=== PATIENT | female | born 1990 | race Caucasian/White ===

== ENCOUNTER 2017-05-24 17:22 | Emergency (ER) | payer BC, OTHER ==
[~2017-05-24] VITALS: Ht 157.5 cm; Wt 78.6 kg
[~2017-05-24 17:22] MED LIST: ASPI325T45 PO; ATV5X PO; CALCTAB7 PO; CHOL20009 PO; CHOLCAP2 PO; ONDA4TAB9 PO; OXYC-57 PO; TNR25 PO
[2017-05-24 17:24] VITALS: TEMP 36.8; Ht 157.5 cm; Wt 78.6 kg
--- NOTE | 2017-05-24 18:41 | DIAGNOSTIC IMAGING REPORT ---
CHEST ONE VIEW PORTABLE CLINICAL HISTORY: Palpitations, Chest Pain COMPARISON STUDY: Chest radiograph June 19, 2014. FINDINGS: Lung volumes are normal. There is no pneumothorax or pleural effusion. There is no consolidation to suggest pneumonia. Pulmonary vascularity is normal. Cardiomediastinal silhouette is normal. IMPRESSION: No acute cardiopulmonary findings. Electronically signed by: Kevyn Minor M.D. 05/24/2017 6:40 PM Dictated Date/Time: 05/24/2017 6:40 PM
[2017-05-24 19:07] LABS: BASO % 0.3 %; BASO ABS # 0.04 K/uL (0-0.2); COMPLETE YES; EOS % 0.6 %; HEMATOCRIT 39.3 % (37-47); IG% 0.2 %; LYMPH % 27.3 %; LYMPH ABS # 3.82 K/uL (1.2-3.4); MEAN CELL VOLUME 88.1 fL (80-100); MEAN CORPUSCULAR HEMOGLOBIN 29.4 pg (25-34); MEAN CORPUSCULAR HGB CONC 33.3 g/dl (32-36); MEAN PLATELET VOLUME 10.6 fL (7.4-10.4); MONO % 7.2 %; NEUT % 64.4 %; PLATELET COUNT 278 K/uL (130-400); RED BLOOD COUNT 4.46 M/uL (4.2-5.4); WHITE BLOOD COUNT 13.99 K/uL (4.8-10.8)
[2017-05-24 19:24] LABS: BLOOD UREA NITROGEN 5 mg/dl (7-18); BUN/CREATININE RATIO 7.7 (10-20); CALCIUM 9.2 mg/dl (8.5-10.1); CARBON DIOXIDE 27 mmol/L (21-32); CHLORIDE 105 mmol/L (98-107); GLUCOSE 78 mg/dl (70-99); POTASSIUM 3.4 mmol/L (3.5-5.1); SODIUM 140 mmol/L (136-145)
[2017-05-24 19:35] LABS: THYROID STIMULATING HORMONE 0.998 uIu/ml (0.300-4.500)
[2017-05-24] MEDS ORDERED: KETOROLAC TROMETHAMINE 30 MG/ML VIAL IV STA (20:00)
--- NOTE | 2017-05-24 21:40 | EMERGENCY ROOM VISIT NOTE ---
History First contact with patient: 18:15 Chief Complaint: CARDIAC ASSESSMENT Stated Complaint: CHEST PAIN, DIZZINESS Nursing Triage Summary: pt c/o chest pain started to worsen 2 weeks ago pt reports having chronic palpatations. has head pressure when standing, described as sharp and achey History of Present Illness The patient is a 26 year old female who presents to the Emergency Room with complaints of palpitations. The patient states that she has had this feeling that her heart is skipping beats and beating out of her chest over the last 2 weeks, but has acutely worsened over the last week. She states that these usually are intermittent but have been consistently occurring throughout the day. She is currently on Atenolol for a rapid heart rate, and follows with [facility] cardiology. She has also had intermittent chest pain over the last 2 weeks as well that changes in position over her chest. She states that she has also been lightheaded and dizzy during these episodes and is having difficulty standing and needs to lie down. She states like she feels she has a lot of pressure in her head and it feels like it is going to explode. She denies any fainting or loss of consciousness. When she lays down she is no longer lightheaded but still has the palpitations. She denies any abdominal pain,and fever chills lightheadedness nausea or vomiting. She has not taken any Ativan because she does not want to treat her symptoms with that. Review of Systems See HPI for pertinent positives and negatives. A total of ten systems were reviewed and were otherwise negative. Past Medical/Surgical History Medical Problems: (1) Anxiety (2) HTN (hypertension) (3) Hypokalemia (4) left foot surgery (5) Tibial plateau fracture, left (6) Vitamin D deficiency Family History Diabetes mellitus Gallbladder disease Hypertension Social History Smoking Status: Current Every Day Smoker Alcohol Use: occasionally Drug Use: none Marital Status: single Housing Status: other Occupation Status: employed Current/Historical Medications Scheduled Atenolol (Atenolol), 25 MG PO QAM Allergies Coded Allergies: Tramadol (Verified Adverse Reaction, Intermediate, N/V, 08/28/16) Physical Exam Vital Signs Date Time Temp Pulse Resp B/P (MAP) Pulse Ox O2 Delivery O2 Flow Rate FiO2 05/24/17 21:44 61 20 127/76 95 Room Air 05/24/17 20:30 72 20 124/87 98 Room Air 05/24/17 19:47 66 20 117/83 99 Room Air 05/24/17 19:07 69 05/24/17 19:03 68 20 134/91 99 Room Air 05/24/17 17:24 36.8 75 18 147/94 100 Room Air Physical Exam GENERAL: Awake, alert, well-appearing, in no distress HENT: Normocephalic, atraumatic. EYES: Normal conjunctiva. Sclera non-icteric. NECK: Supple. No nuchal rigidity. RESPIRATORY: Clear to auscultation. CARDIAC: Regular rate, normal rhythm. Extremities warm and well perfused. Pulses equal. ABDOMEN: Soft, non-distended. No tenderness to palpation. No rebound or guarding. No masses. RECTAL: Deferred. MUSCULOSKELETAL: Chest examination reveals no tenderness. LOWER EXTREMITIES: Calves are equal size bilaterally and non-tender. No edema. No discoloration. NEURO: Normal sensorium. No sensory or motor deficits noted. SKIN: No rash or jaundice noted. Medical Decision & Procedures Laboratory Results 05/24/17 18:55 Red Blood Count 4.46, Mean Corpuscular Volume 88.1, Mean Corpuscular Hemoglobin 29.4, Mean Corpuscular Hemoglobin Concent 33.3, Mean Platelet Volume 10.6, Neutrophils (%) (Auto) 64.4, Lymphocytes (%) (Auto) 27.3, Monocytes (%) (Auto) 7.2, Eosinophils (%) (Auto) 0.6, Basophils (%) (Auto) 0.3, Neutrophils # (Auto) 9.00, Lymphocytes # (Auto) 3.82, Monocytes # (Auto) 1.01, Eosinophils # (Auto) 0.09, Basophils # (Auto) 0.04 05/24/17 18:55 Test 05/24/17 18:40 05/24/17 18:55 05/24/17 19:01 05/24/17 21:15 Urine Test NEG (NEG) White Blood Count 13.99 K/uL (4.8-10.8) Red Blood Count 4.46 M/uL (4.2-5.4) Hemoglobin 13.1 g/dL (12.0-16.0) Hematocrit 39.3 % (37-47) Mean Corpuscular Volume 88.1 fL (80-100) Mean Corpuscular Hemoglobin 29.4 pg (25-34) Mean Corpuscular Hemoglobin Concent 33.3 g/dl (32-36) Platelet Count 278 K/uL (130-400) Mean Platelet Volume 10.6 fL (7.4-10.4) Neutrophils (%) (Auto) 64.4 % Lymphocytes (%) (Auto) 27.3 % Monocytes (%) (Auto) 7.2 % Eosinophils (%) (Auto) 0.6 % Basophils (%) (Auto) 0.3 % Neutrophils # (Auto) 9.00 K/uL (1.4-6.5) Lymphocytes # (Auto) 3.82 K/uL (1.2-3.4) Monocytes # (Auto) 1.01 K/uL (0.11-0.59) Eosinophils # (Auto) 0.09 K/uL (0-0.5) Basophils # (Auto) 0.04 K/uL (0-0.2) RDW Standard Deviation 44.1 fL (36.4-46.3) RDW Coefficient of Variation 13.6 % (11.5-14.5) Immature Granulocyte % (Auto) 0.2 % Immature Granulocyte # (Auto) 0.03 K/uL (0.00-0.02) Anion Gap 8.0 mmol/L (3-11) Est Creatinine Clear Calc Drug Dose 118.3 ml/min Estimated GFR () 138.6 Estimated GFR (Non- 119.6 BUN/Creatinine Ratio 7.7 (10-20) Calcium Level 9.2 mg/dl (8.5-10.1) Thyroid Stimulating Hormone (TSH) 0.998 uIu/ml (0.300-4.500) Bedside D-Dimer 123 ng/mlFEU (0-450) Medications Administered Medications (Trade) Dose Ordered Sig/Deedee Route Start Time Stop Time Status Last Admin Dose Admin Ketorolac Tromethamine (Toradol Inj) 30 mg NOW STAT IV 05/24/17 20:00 05/24/17 20:01 DC 05/24/17 20:33 30 MG Medical Decision Patient is a 26 year old female that presents with chest pain and palpitations Differential diagnosis includes anxiety, electrolyte abnormality, arrhythmia, cardiac ischemia, pulmonary embolism, pneumothorax, infection, musculoskeletal, and other etiologies were considered as well. Labs: CBC, CMP, Troponin, D-Dimer, TSH, Urine Imaging: Chest X-Ray, EKG Medications: Toradol 30mg IV Impression Primary Impression: Chest pain Patient is a 26 year old female that presents with chest pain and palpitations - EKG shows NSR with no ST changes - CBC, CMP, D-Dimer, Troponin, and TSH are within normal limits - Workup negative and no acute findings on imaging or laboratory work - Discussed with case management making an appointment with [facility] at first available appointment Departure Information Dispostion Home / Self-Care Condition GOOD Referrals No Doctor, Assigned (PCP) Patient Instructions My [facility] Additional Instructions Follow up with [facility] at the first available appointment for follow up of your current condition Ibuprofen(Motrin, Advil) may be used for fever or pain. Use 600mg every six hours as needed. Take with food. Avoid using more than 2400mg in a 24 hour period. Do not use 2400mg per day for more than three consecutive days without physician direction. Prolonged inappropriate use can lead to stomach upset or ulcers. (AND/OR) Acetaminophen(Tylenol) may be used for fever or pain. Use 1000mg every six hours as needed. Avoid using more than 4000mg in a 24 hour period. Rest and drink plenty of fluids as tolerated. Continue current medications. Avoid strenuous activities and anything that worsens your pain. Resume normal activities once your symptoms resolve. Return to the ER immediately for worsening or persistent chest pain, abdominal pain, vomiting, fevers, chest pains, difficulty breathing, worsening of your condition, or as needed. Problem Qualifiers Primary Impression: Chest pain Chest pain type: unspecified Qualified Codes: R07.9 - Chest pain, unspecified
[2017-05-24 21:44] VITALS: BP 127/76; PULSE 61; O2SAT 95
--- NOTE | 2017-05-24 23:15 | EMERGENCY ROOM VISIT NOTE ---
History Report prepared by Jase: Ade Larsen Under the Supervision of: Dr. Nahun Kraus D.O. First contact with patient: 18:16 Chief Complaint: CARDIAC ASSESSMENT Stated Complaint: CHEST PAIN, DIZZINESS Nursing Triage Summary: pt c/o chest pain started to worsen 2 weeks ago pt reports having chronic palpatations. has head pressure when standing, described as sharp and achey History of Present Illness The patient is a 26 year old female who presents to the Emergency Room with complaints of intermittent heart palpitations that began one month ago. She currently rates her discomfort as a 10/10 in severity. The patient states that she has been experiencing palpations intermittently for a month but states that they worsened over the last week. She states that they started this morning when she woke up and last approximately three minutes. The patient additionally notes chest pain for the last two weeks. She denies any modifying factors. The patient states that she has been experiencing head pressure and a headache when standing. Headaches come on gradually and gradually worsened. The patient states that she follows with cardiology. She reports a history of meningitis. The patient denies any history of blood clots or cancer. She additionally notes lightheadedness and dizziness. The patient reports a history of anxiety and notes that she is prescribed Ativan, but denies using it. Pt denies change in vision, fevers, shortness of breath, nausea, hematemesis, vomiting, diarrhea, swelling to her lower extremities, pain with urination, and melena. Source of History: patient Onset: one month ago Position: other (heart) Symptom Intensity: 10/10 Quality: other (palpitations) Timing: intermittent Associated Symptoms: + headache, + chest pain Note: Associated Symptoms: dizziness and lightheadedness Review of Systems See HPI for pertinent positives & negatives. A total of 10 systems reviewed and were otherwise negative. Past Medical & Surgical Medical Problems: (1) Anxiety (2) HTN (hypertension) (3) Hypokalemia (4) left foot surgery (5) Tibial plateau fracture, left (6) Vitamin D deficiency Family History Diabetes mellitus Gallbladder disease Hypertension Social History Smoking Status: Current Every Day Smoker Alcohol Use: occasionally Drug Use: none Marital Status: single Housing Status: other Occupation Status: employed Current/Historical Medications Scheduled Atenolol (Atenolol), 25 MG PO QAM Allergies Coded Allergies: Tramadol (Verified Adverse Reaction, Intermediate, N/V, 10/16/16) Physical Exam Vital Signs Date Time Temp Pulse Resp B/P (MAP) Pulse Ox O2 Delivery O2 Flow Rate FiO2 05/24/17 21:44 61 20 127/76 95 Room Air 05/24/17 20:30 72 20 124/87 98 Room Air 05/24/17 19:47 66 20 117/83 99 Room Air 05/24/17 19:07 69 05/24/17 19:03 68 20 134/91 99 Room Air 05/24/17 17:24 36.8 75 18 147/94 100 Room Air Physical Exam GENERAL: Sitting up in bed, alert, well appearing, well nourished, no distress, non-toxic EYE EXAM: normal conjunctiva, PERRL and EOM's grossly intact OROPHARYNX: no exudate, no erythema, lips, buccal mucosa, and tongue normal and mucous membranes are moist NECK: supple, no nuchal rigidity, no adenopathy, non-tender LUNGS: Clear to auscultation. Normal chest wall mechanics HEART: no murmurs, S1 normal and S2 normal ABDOMEN: abdomen soft, non-tender, normo-active bowel sounds, no masses, no rebound or guarding. BACK: Back is symmetrical on inspection and there is no deformity, no midline tenderness, no CVA tenderness. SKIN: no rashes and no bruising UPPER EXTREMITIES: upper extremities are grossly normal. LOWER EXTREMITIES: No pitting edema. NEURO EXAM: Normal sensorium, cranial nerves II-XII intact, normal speech, no weakness of arms, no weakness of legs. No drift. Finger to nose intact. Gross sensation intact. Medical Decision & Procedures ER Provider Diagnostic Interpretation: Radiology results as stated below per my review and the radiologist's interpretation: CHEST ONE VIEW PORTABLE CLINICAL HISTORY: Palpitations, Chest Pain COMPARISON STUDY: Chest radiograph June 19, 2014. FINDINGS: Lung volumes are normal. There is no pneumothorax or pleural effusion. There is no consolidation to suggest pneumonia. Pulmonary vascularity is normal. Cardiomediastinal silhouette is normal. IMPRESSION: No acute cardiopulmonary findings. Electronically signed by: Kevyn Minor M.D. 05/24/2017 6:40 PM Dictated Date/Time: 05/24/2017 6:40 PM Laboratory Results 05/24/17 18:55 Red Blood Count 4.46, Mean Corpuscular Volume 88.1, Mean Corpuscular Hemoglobin 29.4, Mean Corpuscular Hemoglobin Concent 33.3, Mean Platelet Volume 10.6, Neutrophils (%) (Auto) 64.4, Lymphocytes (%) (Auto) 27.3, Monocytes (%) (Auto) 7.2, Eosinophils (%) (Auto) 0.6, Basophils (%) (Auto) 0.3, Neutrophils # (Auto) 9.00, Lymphocytes # (Auto) 3.82, Monocytes # (Auto) 1.01, Eosinophils # (Auto) 0.09, Basophils # (Auto) 0.04 05/24/17 18:55 Test 05/24/17 18:40 05/24/17 18:55 05/24/17 19:01 05/24/17 21:15 Urine Test NEG (NEG) White Blood Count 13.99 K/uL (4.8-10.8) Red Blood Count 4.46 M/uL (4.2-5.4) Hemoglobin 13.1 g/dL (12.0-16.0) Hematocrit 39.3 % (37-47) Mean Corpuscular Volume 88.1 fL (80-100) Mean Corpuscular Hemoglobin 29.4 pg (25-34) Mean Corpuscular Hemoglobin Concent 33.3 g/dl (32-36) Platelet Count 278 K/uL (130-400) Mean Platelet Volume 10.6 fL (7.4-10.4) Neutrophils (%) (Auto) 64.4 % Lymphocytes (%) (Auto) 27.3 % Monocytes (%) (Auto) 7.2 % Eosinophils (%) (Auto) 0.6 % Basophils (%) (Auto) 0.3 % Neutrophils # (Auto) 9.00 K/uL (1.4-6.5) Lymphocytes # (Auto) 3.82 K/uL (1.2-3.4) Monocytes # (Auto) 1.01 K/uL (0.11-0.59) Eosinophils # (Auto) 0.09 K/uL (0-0.5) Basophils # (Auto) 0.04 K/uL (0-0.2) RDW Standard Deviation 44.1 fL (36.4-46.3) RDW Coefficient of Variation 13.6 % (11.5-14.5) Immature Granulocyte % (Auto) 0.2 % Immature Granulocyte # (Auto) 0.03 K/uL (0.00-0.02) Anion Gap 8.0 mmol/L (3-11) Est Creatinine Clear Calc Drug Dose 118.3 ml/min Estimated GFR () 138.6 Estimated GFR (Non- 119.6 BUN/Creatinine Ratio 7.7 (10-20) Calcium Level 9.2 mg/dl (8.5-10.1) Thyroid Stimulating Hormone (TSH) 0.998 uIu/ml (0.300-4.500) Bedside D-Dimer 123 ng/mlFEU (0-450) Troponin I < 0.015 ng/ml (0-0.045) Laboratory results per my review. Medications Administered Medications (Trade) Dose Ordered Sig/Deedee Route Start Time Stop Time Status Last Admin Dose Admin Ketorolac Tromethamine (Toradol Inj) 30 mg NOW STAT IV 05/24/17 20:00 05/24/17 20:01 DC 05/24/17 20:33 30 MG ECG Indication: chest pain Rate (beats per minute): 76 Rhythm: sinus rhythm Findings: no acute ischemic change, no ectopy, other (normal axis) ED Course ED COURSE: Vital signs were reviewed and showed normal vitals The patients medical record was reviewed The above diagnostic studies were performed and reviewed. ED treatments and interventions as stated above. 1815: The patient was evaluated in room B3A. A complete history and physical examination was performed by Dr. Tolentino, [employer]. 1929: The patient was evaluated in room B3A. A complete history and physical examination was performed. 1999: Ordered Toradol Inj 30 mg IV. 0: Upon reevaluation, the patient is she is feeling much better.I discussed my findings with the patient and she understands and agrees with the treatment plan. Based on the patients age, coexisting illnesses, exam and lab findings the decision to treat as an outpatient was made. The patient remained stable while under my care. The patient appeared well at the time of discharge. Medical Decision Differential diagnoses includes but is not limited to acute coronary syndrome, myocardial infarction, pericarditis, pulmonary embolus, aortic dissection, pneumonia, pneumothorax, musculoskeletal, shingles, esophageal, headache, tension headache, cluster headache, migraine, subarachnoid hemorrhage, meningitis, mass, central venous thrombus, concussion, trauma and epidural/ subdural hemorrhage. Medication Reconciliation: I attest that I have personally reviewed the patient' s current medication list. Blood pressure screening: Patient was found to have normal blood pressure on screening and does not require follow-up. Patient is a 26-year-old female who presents the ER for intermittent heart palpitations in the past 2-3 weeks. She's been worked up for cardiology for this in the past. Just complains of a chest pain with this as well. Symptoms have been present all day today. No weakness or numbness in arms or legs. According to the headache which is been coming and going over the past 2 weeks. She is completely neurologically intact. Labs show a leukocytosis of 13.9 thousand. BMP shows a slightly low potassium. Troponins were negative 2. TSH is normal. D-dimer was negative. Urine was negative. Chest x- ray and EKG were unremarkable. Patient was updated in regards to findings, she was given a dose of Toradol. She felt 100% better was discharged follow with her PCP. Discussed with Pt concerning signs and symptoms to watch out for. Pt was instructed to follow up with their PCP and discussed with the patient their option to return to the ED at anytime for persistent or worsening symptoms. The appropriate anticipatory guidance and out-patient management, including indications for return to the emergency department, were explained at length to the patient and understood. Impression Primary Impression: Precordial chest pain Additional Impression: Cephalalgia Scribe Attestation The scribe's documentation has been prepared under my direction and personally reviewed by me in its entirety. I confirm that the note above accurately reflects all work, treatment, procedures, and medical decision making performed by me. Departure Information Dispostion Home / Self-Care Referrals No Doctor, Assigned (PCP) Forms IMPORTANT VISIT INFORMATION Patient Instructions Chest Pain - [facility], [facility], [facility] Additional Instructions Follow up with [facility] at the first available appointment for follow up of your current condition Ibuprofen(Motrin, Advil) may be used for fever or pain. Use 400mg every six hours as needed. Take with food. Avoid using more than 1600mg in a 24 hour period. Do not use 1600mg per day for more than three consecutive days without physician direction. Prolonged inappropriate use can lead to stomach upset or ulcers. (AND/OR) Acetaminophen(Tylenol) may be used for fever or pain. Use 1000mg every six hours as needed. Avoid using more than 4000mg in a 24 hour period. Rest and drink plenty of fluids as tolerated. Continue current medications. Avoid strenuous activities and anything that worsens your pain. Resume normal activities once your symptoms resolve. Return to the ER immediately for worsening or persistent chest pain, abdominal pain, vomiting, fevers, chest pains, difficulty breathing, worsening of your condition, or as needed. Problem Qualifiers Additional Impression: Cephalalgia Headache type: unspecified Headache chronicity pattern: acute headache Intractability: not intractable Qualified Codes: R51 - Headache
== END 2017-05-24 22:14 | disposition home or self-care (01) ==
LOC: C.EDB 17:24
DX: R07.2 Precordial pain (principal); R51 Headache; F41.9 Anxiety disorder, unspecified; I10 Essential (primary) hypertension; E87.6 Hypokalemia; E55.9 Vitamin D deficiency, unspecified; Z86.61 Personal history of infections of the central nervous system; F17.210 Nicotine dependence, cigarettes, uncomplicated; Z83.3 Family history of diabetes mellitus; Z83.79 Family history of other diseases of the digestive system; Z82.49 Family history of ischemic heart disease and other diseases of the circulatory system; Z79.899 Other long term (current) drug therapy

== ENCOUNTER 2017-10-16 14:31 | Emergency (ER) | payer BC, OTHER ==
[~2017-10-16] VITALS: Ht 157.5 cm; Wt 74.8 kg
[~2017-10-16 14:31] MED LIST changes: -ASPI325T45 PO; -ATV5X PO; -CALCTAB7 PO; -CHOL20009 PO; -CHOLCAP2 PO; -ONDA4TAB9 PO; -OXYC-57 PO
[2017-10-16 14:41] VITALS: TEMP 36.8; Ht 157.5 cm; Wt 74.8 kg
[2017-10-16] MEDS ORDERED: DiphenhydrAMINE HCL 50 MG/ML VIAL IV STA (16:17)
[2017-10-16] MEDS ORDERED: SODIUM CHLORIDE 0.9% 1000ML 2,000 ML IV STA (16:17)
[2017-10-16] MEDS ORDERED: ONDANSETRON INJ 2 MG/ML 2 ML VIAL IV STA (16:17)
--- NOTE | 2017-10-16 16:33 | EMERGENCY ROOM VISIT NOTE ---
History Report prepared by Jase: Denice Cantrell Under the Supervision of: Dr. Doug Rodriguez M.D. First contact with patient: 16:12 Chief Complaint: VOMITING Stated Complaint: DIZZY, VOMITING - 10 WKS. History of Present Illness The patient is a 27 year old female who presents to the Emergency Room with complaints of intermittent vomiting beginning 2 days ago. The patient states that she is 10 weeks and this is her first . She reports that she has had an ultrasound but has not been to see an [employer] doctor yet. She notes that over the last 2 days she has only been able to eat once a day and is having a hard time keeping fluids down. The patient states that she has been feeling dizzy and has had one episode of diarrhea. She denies any abdominal pain , urinary symptoms, fever, cough, and cold symptoms. The patient states that she has had vaginal spotting a few times throughout this . Source of History: patient Onset: 2 days ago Position: other (global) Quality: other (vomiting) Timing: constant Associated Symptoms: + diarrhea, No fevers, No cough, No abdominal pain, No urinary symptoms Note: Pt complains of dizziness. She denies any cold symptoms. Review of Systems See HPI for pertinent positives & negatives. A total of 10 systems reviewed and were otherwise negative. Past Medical & Surgical Medical Problems: (1) Anxiety (2) HTN (hypertension) (3) Hypokalemia (4) left foot surgery (5) Tibial plateau fracture, left (6) Vitamin D deficiency Family History Diabetes mellitus Gallbladder disease Hypertension Social History Smoking Status: Current Every Day Smoker Alcohol Use: occasionally Drug Use: none Marital Status: single Housing Status: other Occupation Status: employed Current/Historical Medications Scheduled Atenolol (Atenolol), 25 MG PO QAM Ondasetron Odt (Zofran Odt), 4 MG SL Q6H Allergies Coded Allergies: Tramadol (Verified Adverse Reaction, Intermediate, N/V, 08/28/16) Physical Exam Vital Signs Date Time Temp Pulse Resp B/P (MAP) Pulse Ox O2 Delivery O2 Flow Rate FiO2 10/16/17 18:34 76 20 112/80 99 10/16/17 18:03 76 20 110/56 96 Room Air 10/16/17 14:41 36.8 77 18 115/79 99 Room Air Physical Exam GENERAL: Patient is in no acute distress. HEENT: No acute trauma, normocephalic atraumatic, mucous membranes moist, no nasal congestion, no scleral icterus. NECK: No stridor, no adenopathy, no meningismus, trachea is midline. LUNGS: Clear to auscultation bilaterally, no wheeze, no rhonchi, breath sounds equal. HEART: Without murmurs gallops or rubs, regular rate and rhythm. ABDOMEN: Soft, nontender, bowel sounds positive, no hernias, no peritonitis. EXTREMITIES: No cyanosis or edema, full range of motion of all the joints without pain or difficulty, no signs for acute trauma. NEUROLOGIC: Oriented x 3, no acute motor or sensory deficits, no focal weakness. SKIN: No rash, no jaundice, no diaphoresis. Medical Decision & Procedures Laboratory Results 10/16/17 16:34 Red Blood Count 4.57, Mean Corpuscular Volume 86.9, Mean Corpuscular Hemoglobin 29.5, Mean Corpuscular Hemoglobin Concent 34.0, Mean Platelet Volume 10.6, Neutrophils (%) (Auto) 71.0, Lymphocytes (%) (Auto) 19.6, Monocytes (%) (Auto) 8.2, Eosinophils (%) (Auto) 0.6, Basophils (%) (Auto) 0.2, Neutrophils # (Auto) 10.88, Lymphocytes # (Auto) 3.00, Monocytes # (Auto) 1.26, Eosinophils # (Auto) 0.09, Basophils # (Auto) 0.03 10/16/17 16:34 Test 10/16/17 16:30 10/16/17 16:34 Urine Color YELLOW Urine Appearance TURBID (CLEAR) Urine pH 6.0 (4.5-7.5) Urine Specific [place] 1.021 (1.000-1.030) Urine Protein NEG (NEG) Urine Glucose (UA) NEG (NEG) Urine Ketones 2+ (NEG) Urine Occult Blood NEG (NEG) Urine Nitrite NEG (NEG) Urine Bilirubin NEG (NEG) Urine Urobilinogen NEG (NEG) Urine Leukocyte Esterase NEG (NEG) Urine WBC (Auto) 5-10 /hpf (0-5) Urine RBC (Auto) 0-4 /hpf (0-4) Urine Hyaline Casts (Auto) 1-5 /lpf (0-5) Urine Epithelial Cells (Auto) >30 /lpf (0-5) Urine Bacteria (Auto) 2+ (NEG) Urine Pathogenic Casts /lpf (0) Urine Mucus PRESENT (NONE PRSENT) White Blood Count 15.32 K/uL (4.8-10.8) Red Blood Count 4.57 M/uL (4.2-5.4) Hemoglobin 13.5 g/dL (12.0-16.0) Hematocrit 39.7 % (37-47) Mean Corpuscular Volume 86.9 fL (80-100) Mean Corpuscular Hemoglobin 29.5 pg (25-34) Mean Corpuscular Hemoglobin Concent 34.0 g/dl (32-36) Platelet Count 292 K/uL (130-400) Mean Platelet Volume 10.6 fL (7.4-10.4) Neutrophils (%) (Auto) 71.0 % Lymphocytes (%) (Auto) 19.6 % Monocytes (%) (Auto) 8.2 % Eosinophils (%) (Auto) 0.6 % Basophils (%) (Auto) 0.2 % Neutrophils # (Auto) 10.88 K/uL (1.4-6.5) Lymphocytes # (Auto) 3.00 K/uL (1.2-3.4) Monocytes # (Auto) 1.26 K/uL (0.11-0.59) Eosinophils # (Auto) 0.09 K/uL (0-0.5) Basophils # (Auto) 0.03 K/uL (0-0.2) RDW Standard Deviation 42.7 fL (36.4-46.3) RDW Coefficient of Variation 13.4 % (11.5-14.5) Immature Granulocyte % (Auto) 0.4 % Immature Granulocyte # (Auto) 0.06 K/uL (0.00-0.02) Anion Gap 4.0 mmol/L (3-11) Est Creatinine Clear Calc Drug Dose 153.9 ml/min Estimated GFR () > 150.0 Estimated GFR (Non- 130.9 BUN/Creatinine Ratio 15.4 (10-20) Calcium Level 8.8 mg/dl (8.5-10.1) Total Bilirubin 0.2 mg/dl (0.2-1) Aspartate Amino Transf (AST/SGOT) 14 U/L (15-37) Alanine Aminotransferase (ALT/SGPT) 30 U/L (12-78) Alkaline Phosphatase 87 U/L (45-117) Total Protein 7.5 gm/dl (6.4-8.2) Albumin 3.6 gm/dl (3.4-5.0) Globulin 3.9 gm/dl (2.5-4.0) Albumin/Globulin Ratio 0.9 (0.9-2) Thyroid Stimulating Hormone (TSH) 0.605 uIu/ml (0.300-4.500) Laboratory results reviewed by me. Medications Administered Medications (Trade) Dose Ordered Sig/Deedee Route Start Time Stop Time Status Last Admin Dose Admin Sodium Chloride 2,000 ml @ 999 mls/hr Q2H1M STAT IV 10/16/17 16:17 10/16/17 18:17 DC 10/16/17 16:35 999 MLS/HR Ondansetron HCl (Zofran Inj) 4 mg NOW STAT IV 10/16/17 16:17 10/16/17 16:20 DC 10/16/17 16:40 4 MG Diphenhydramine HCl (Benadryl Inj) 25 mg NOW STAT IV 10/16/17 16:17 10/16/17 16:20 DC 10/16/17 16:41 25 MG ED Course 1612: The patient was evaluated in room A8. A complete history and physical exam was performed. 1617: Benadryl Inj 25mg IV, Zofran Inj 4mg IV, Sodium Chloride 2000 ml @ 999 mls /hr IV. 1750: I reevaluated and updated the patient. 1806: Reevaluated the patient. Discussed results and discharge instructions: She verbalized understanding and agreement. The patient is ready for discharge. Medical Decision The patient is a 27 year old female who presents to the ED with complaints of intermittent vomiting. Differential diagnoses considered include hyperemesis, vomiting secondary to , UTI, dehydration, obstruction, anemia, electrolyte imbalance. There is a moderate leukocytosis at 15,000. This white count elevation could be consistent with infection or just her and vomiting. No concerning anemia. No significant electrolyte abnormality, kidney failure. There is no evidence for acute UTI. The patient appears to be in a euthyroid state. On exam, the patient was not toxic or febrile. There was no abdominal pain, she has not had significant vaginal discharge or bleeding. The patient's symptoms are consistent with vomiting and nausea from the itself. She was given IV saline, IV Zofran and IV Benadryl, she feels improved. She is being discharged with Zofran to use if needed for persistent nausea and vomiting. She will follow with OB and return here if worsening. Medication Reconcilliation Current Medication List: was personally reviewed by me Blood Pressure Screening Patient's blood pressure: Normal blood pressure Blood pressure disposition: Did not require urgent referral Impression Primary Impression: Dehydration Additional Impressions: Vomiting Scribe Attestation The scribe's documentation has been prepared under my direction and personally reviewed by me in its entirety. I confirm that the note above accurately reflects all work, treatment, procedures, and medical decision making performed by me. Departure Information Dispostion Home / Self-Care Prescriptions Ondasetron Odt (ZOFRAN ODT) 4 Mg Tab 4 MG SL Q6H for Nausea, #10 TAB Prov: Doug Rodriguez M.D. 10/16/17 Referrals No Doctor, Assigned (PCP) Forms HOME CARE DOCUMENTATION FORM, IMPORTANT VISIT INFORMATION Patient Instructions My [facility] Additional Instructions smaller, more frequest meals---no large meals at a time may use zofran 1 tab every 6 hours as needed for nausea see ob in followup- return for worsening symptoms lab work today was ok Problem Qualifiers
[2017-10-16 16:42] LABS: BASO % 0.2 %; BASO ABS # 0.03 K/uL (0-0.2); COMPLETE YES; EOS % 0.6 %; HEMATOCRIT 39.7 % (37-47); IG% 0.4 %; LYMPH % 19.6 %; MEAN CELL VOLUME 86.9 fL (80-100); MEAN CORPUSCULAR HEMOGLOBIN 29.5 pg (25-34); MEAN PLATELET VOLUME 10.6 fL (7.4-10.4); MONO % 8.2 %; PLATELET COUNT 292 K/uL (130-400); RED BLOOD COUNT 4.57 M/uL (4.2-5.4); WHITE BLOOD COUNT 15.32 K/uL (4.8-10.8)
[2017-10-16 16:59] LABS: ALT/SGPT 30 U/L (12-78); AST/SGOT 14 U/L (15-37); BLOOD UREA NITROGEN 8 mg/dl (7-18); BUN/CREATININE RATIO 15.4 (10-20); CALCIUM 8.8 mg/dl (8.5-10.1); CARBON DIOXIDE 25 mmol/L (21-32); CHLORIDE 103 mmol/L (98-107); CREATININE 0.52 mg/dl (0.60-1.20); GLUCOSE 88 mg/dl (70-99); POTASSIUM 3.5 mmol/L (3.5-5.1); SODIUM 132 mmol/L (136-145)
[2017-10-16 17:03] LABS: URINE APPEARANCE TURBID (CLEAR); URINE BILIRUBIN NEG (NEG); URINE COLOR YELLOW; URINE EPITHELIAL CELL AUTO >30 /lpf (0-5); URINE NITRITE NEG (NEG); URINE SPECIFIC GRAVITY 1.021 (1.000-1.030); UROBILINOGEN NEG (NEG); ZZUR CULT IF INDIC CLEAN CATCH YES
[2017-10-16 17:10] LABS: MANUAL MICROSCOPIC REQUIRED? NO; REVIEW REQ? YES
[2017-10-16 17:10] LABS: ALB/GLOB RATIO 0.9 (0.9-2); ALKALINE PHOSPHATASE 87 U/L (45-117); THYROID STIMULATING HORMONE 0.605 uIu/ml (0.300-4.500)
[2017-10-16 17:22] LABS: URINE MUCUS PRESENT (NONE PRSENT)
[2017-10-16] MEDS ORDERED: ONDA4TAB10 SL (17:53)
[2017-10-16 18:34] VITALS: BP 112/80; PULSE 76; O2SAT 99
== END 2017-10-16 18:35 | disposition home or self-care (01) ==
LOC: C.EDB 14:32 → C.EDA 18:35
DX: O21.1 Hyperemesis gravidarum with metabolic disturbance (principal); Z3A.10 10 weeks gestation of pregnancy; D72.819 Decreased white blood cell count, unspecified; I10 Essential (primary) hypertension; F41.9 Anxiety disorder, unspecified; E55.9 Vitamin D deficiency, unspecified; F17.200 Nicotine dependence, unspecified, uncomplicated; Z87.81 Personal history of (healed) traumatic fracture; Z98.890 Other specified postprocedural states; Z79.899 Other long term (current) drug therapy; Z88.5 Allergy status to narcotic agent; Z83.3 Family history of diabetes mellitus; Z83.79 Family history of other diseases of the digestive system; Z82.49 Family history of ischemic heart disease and other diseases of the circulatory system

== ENCOUNTER 2017-10-24 12:19 | Emergency (ER) | payer OTHER ==
[~2017-10-24] VITALS: Ht 157.5 cm; Wt 74.0 kg
[~2017-10-24 12:19] MED LIST changes: +ONDA4TAB10 SL
[2017-10-24 12:30] VITALS: Ht 157.5 cm; Wt 74.0 kg
[2017-10-24] MEDS ORDERED: ACETAMINOPHEN 500 MG TAB PO STA (13:07)
[2017-10-24 14:08] LABS: BASO % 0.2 %; BASO ABS # 0.03 K/uL (0-0.2); COMPLETE YES; EOS % 0.7 %; HEMATOCRIT 37.3 % (37-47); IG% 0.3 %; LYMPH % 20.3 %; LYMPH ABS # 3.06 K/uL (1.2-3.4); MEAN CELL VOLUME 88.4 fL (80-100); MEAN CORPUSCULAR HEMOGLOBIN 30.6 pg (25-34); MEAN CORPUSCULAR HGB CONC 34.6 g/dl (32-36); MEAN PLATELET VOLUME 10.7 fL (7.4-10.4); MONO % 8.4 %; NEUT % 70.1 %; PLATELET COUNT 269 K/uL (130-400); RED BLOOD COUNT 4.22 M/uL (4.2-5.4); WHITE BLOOD COUNT 15.04 K/uL (4.8-10.8)
--- NOTE | 2017-10-24 14:25 | DIAGNOSTIC IMAGING REPORT ---
CT HEAD WITHOUT CONTRAST (CT) CLINICAL HISTORY: Worsening headaches. COMPARISON STUDY: 05/27/2014 TECHNIQUE: Axial CT of the brain is performed from the vertex to the skull base. IV contrast was not administered for this examination. A dose lowering technique was utilized adhering to the principles of ALARA. CT DOSE: 638.56 mGycm FINDINGS: No intra or extra-axial mass lesions are visualized. There is no CT evidence of acute cortical infarction. There is no evidence of midline shift. There is no acute hemorrhage. No calvarial fractures are visualized. There is no evidence of pathologic ventricular dilatation. There is no evidence of acute sinusitis IMPRESSION: Normal noncontrast head CT. Electronically signed by: William Tello M.D. 10/24/2017 2:24 PM Dictated Date/Time: 10/24/2017 2:23 PM
[2017-10-24 14:29] LABS: BLOOD UREA NITROGEN 5 mg/dl (7-18); CARBON DIOXIDE 24 mmol/L (21-32); CHLORIDE 104 mmol/L (98-107); CREATININE 0.49 mg/dl (0.60-1.20); GLUCOSE 74 mg/dl (70-99); POTASSIUM 3.8 mmol/L (3.5-5.1); SODIUM 135 mmol/L (136-145)
[2017-10-24] MEDS ORDERED: AMOX500C3 PO (15:15)
[2017-10-24] MEDS ORDERED: AMOXICILLIN 250 MG CAP PO ONE (15:15)
[2017-10-24 15:53] VITALS: BP 108/68; PULSE 67; TEMP 36.8; O2SAT 99
--- NOTE | 2017-10-24 17:37 | EMERGENCY ROOM VISIT NOTE ---
History Report prepared by Jase: Preet Medina Under the Supervision of: Dr. Nahun Kraus D.O. First contact with patient: 13:00 Chief Complaint: HEADACHE Stated Complaint: HEAD PRESSURE History of Present Illness The patient is a 27 year old female who presents to the Emergency Room with complaints of a worsening on and off headache for the past six months. The patient states that she feels like she has a diffuse pressure in her head. She states that it initially only occurred while laying on her abdomen, however now it is constant, and nothing makes it any better or worse. She notes that she is currently 11 weeks with her first child with no complications. Pt denies headache, change in vision, fevers, cough, runny nose, weakness, numbness , neck stiffness, chest pain, shortness of breath, nausea, vomiting, diarrhea, pain with urination, melena, and history of blood clots. She has never had this before. Source of History: patient Onset: 6 months ago Position: head Quality: other (pressure) Timing: worsening, other (on and off) Associated Symptoms: No fevers, No cough, No chest pain, No SOB, No nausea, No vomiting Review of Systems See HPI for pertinent positives & negatives. A total of 10 systems reviewed and were otherwise negative. Past Medical & Surgical Medical Problems: (1) Anxiety (2) HTN (hypertension) (3) Hypokalemia (4) left foot surgery (5) Tibial plateau fracture, left (6) Vitamin D deficiency Family History Diabetes mellitus Gallbladder disease Hypertension Social History Smoking Status: Current Every Day Smoker Alcohol Use: occasionally Drug Use: none Marital Status: single Housing Status: other Occupation Status: employed Current/Historical Medications Scheduled Amoxicillin (Amoxil), 500 MG PO TID Atenolol (Atenolol), 25 MG PO QAM Allergies Coded Allergies: Tramadol (Verified Adverse Reaction, Intermediate, N/V, 10/24/17) Physical Exam Vital Signs Date Time Temp Pulse Resp B/P (MAP) Pulse Ox O2 Delivery O2 Flow Rate FiO2 10/24/17 15:53 36.8 67 18 108/68 99 10/24/17 14:57 36.8 67 18 108/68 99 Room Air 10/24/17 13:39 66 18 109/73 98 10/24/17 12:42 80 10/24/17 12:38 36.8 97 20 109/73 97 Room Air 10/24/17 12:30 36.8 80 20 100/52 98 Room Air Physical Exam GENERAL: Sitting up in bed, alert, well appearing, well nourished, no distress, non-toxic EYE EXAM: normal conjunctiva. PERRL and EOM's intact. On funduscopic exam, the optic discs are sharp. OROPHARYNX: no exudate, no erythema, lips, buccal mucosa, and tongue normal and mucous membranes are moist EARS: Right TM is clear and the left TM is difficult to visualize with some surrounding erythema and whitish discharge and swelling within the canal. NECK: supple, no nuchal rigidity, no adenopathy, non-tender LUNGS: Clear to auscultation. Normal chest wall mechanics HEART: no murmurs, S1 normal and S2 normal ABDOMEN: abdomen soft, non-tender, normo-active bowel sounds, no masses, no rebound or guarding. BACK: Back is symmetrical on inspection and there is no deformity, no midline tenderness, no CVA tenderness. SKIN: no rashes and no bruising UPPER EXTREMITIES: upper extremities are grossly normal. LOWER EXTREMITIES: No pitting edema. NEURO EXAM: Normal sensorium, cranial nerves II-XII intact, normal speech, no weakness of arms, no weakness of legs. No drift. Finger to nose intact. Gross sensation intact. Rapid alternating movements of the upper extremities intact. Medical Decision & Procedures ER Provider Diagnostic Interpretation: Radiology results as stated below per my review and the radiologist's interpretation: CT HEAD WITHOUT CONTRAST (CT) CLINICAL HISTORY: Worsening headaches. COMPARISON STUDY: 05/27/2014 TECHNIQUE: Axial CT of the brain is performed from the vertex to the skull base. IV contrast was not administered for this examination. A dose lowering technique was utilized adhering to the principles of ALARA. CT DOSE: 638.56 mGycm FINDINGS: No intra or extra-axial mass lesions are visualized. There is no CT evidence of acute cortical infarction. There is no evidence of midline shift. There is no acute hemorrhage. No calvarial fractures are visualized. There is no evidence of pathologic ventricular dilatation. There is no evidence of acute sinusitis IMPRESSION: Normal noncontrast head CT. Electronically signed by: William Tello M.D. 10/24/2017 2:24 PM Dictated Date/Time: 10/24/2017 2:23 PM Laboratory Results 10/24/17 13:40 Red Blood Count 4.22, Mean Corpuscular Volume 88.4, Mean Corpuscular Hemoglobin 30.6, Mean Corpuscular Hemoglobin Concent 34.6, Mean Platelet Volume 10.7, Neutrophils (%) (Auto) 70.1, Lymphocytes (%) (Auto) 20.3, Monocytes (%) (Auto) 8.4, Eosinophils (%) (Auto) 0.7, Basophils (%) (Auto) 0.2, Neutrophils # (Auto) 10.54, Lymphocytes # (Auto) 3.06, Monocytes # (Auto) 1.26, Eosinophils # (Auto) 0.11, Basophils # (Auto) 0.03 10/24/17 13:40 Test 10/24/17 13:40 White Blood Count 15.04 K/uL (4.8-10.8) Red Blood Count 4.22 M/uL (4.2-5.4) Hemoglobin 12.9 g/dL (12.0-16.0) Hematocrit 37.3 % (37-47) Mean Corpuscular Volume 88.4 fL (80-100) Mean Corpuscular Hemoglobin 30.6 pg (25-34) Mean Corpuscular Hemoglobin Concent 34.6 g/dl (32-36) Platelet Count 269 K/uL (130-400) Mean Platelet Volume 10.7 fL (7.4-10.4) Neutrophils (%) (Auto) 70.1 % Lymphocytes (%) (Auto) 20.3 % Monocytes (%) (Auto) 8.4 % Eosinophils (%) (Auto) 0.7 % Basophils (%) (Auto) 0.2 % Neutrophils # (Auto) 10.54 K/uL (1.4-6.5) Lymphocytes # (Auto) 3.06 K/uL (1.2-3.4) Monocytes # (Auto) 1.26 K/uL (0.11-0.59) Eosinophils # (Auto) 0.11 K/uL (0-0.5) Basophils # (Auto) 0.03 K/uL (0-0.2) RDW Standard Deviation 43.5 fL (36.4-46.3) RDW Coefficient of Variation 13.5 % (11.5-14.5) Immature Granulocyte % (Auto) 0.3 % Immature Granulocyte # (Auto) 0.04 K/uL (0.00-0.02) Anion Gap 7.0 mmol/L (3-11) Est Creatinine Clear Calc Drug Dose 162.5 ml/min Estimated GFR () > 150.0 Estimated GFR (Non- 133.5 BUN/Creatinine Ratio 10.0 (10-20) Calcium Level 9.0 mg/dl (8.5-10.1) Human Chorionic Gonadotropin, Quant 29679 mIU/mL Laboratory results per my review. Medications Administered Medications (Trade) Dose Ordered Sig/Deedee Route Start Time Stop Time Status Last Admin Dose Admin Acetaminophen (Tylenol Tab) 500 mg NOW STAT PO 10/24/17 13:07 10/24/17 13:09 DC 10/24/17 13:39 500 MG Amoxicillin (Amoxil Cap) 500 mg NOW ONCE PO 10/24/17 15:15 10/24/17 15:16 DC 10/24/17 15:52 500 MG ED Course ED COURSE: Vital signs were reviewed and showed normal vitals The patients medical record was reviewed The above diagnostic studies were performed and reviewed. ED treatments and interventions as stated above. 1300: The patient was evaluated in room B10. A complete history and physical examination was performed. 1307: Tylenol 500mg PO 1459: Upon reevaluation, the patient is doing well. She is additionally complaining of some ear pain, and she notes that she has had three ear infections since June.I discussed my findings with the patient and she understands and agrees with the treatment plan. Based on the patients age, coexisting illnesses, exam and lab findings the decision to treat as an outpatient was made. The patient remained stable while under my care. The patient appeared well at the time of discharge. 1515: Amoxicillin 500mg PO Medical Decision Differential Diagnosis includes but is not limited to headache, tension headache , cluster headache, migraine, subarachnoid hemorrhage, meningitis, mass, central venous thrombus, concussion, trauma and epidural/subdural hemorrhage. Patient is a 27-year-old female who presents to ER for constant head pressure. This has been intermittently coming going for the past 6 months but has now been more constant. Patient is completely neurologically intact. CT head was negative. Labs show a mild leukocytosis which is consistent with previous white count. BMP was unremarkable. Beta hCG 45,000. On reevaluation patient noted that she also has left ear pain. On exam. She has an otitis externa to have difficulty visualizing the TM. She was given ofloxacin drops in the ER and discharged with them along with amoxicillin as I could not visualize the TM. Patient was given a referral to ENT as she has been treated for this a total of 3 times over the past 6 months. Do not believe this is consistent with infection as there is no signs meningitis or encephalitis. History not consistent with trauma or a subarachnoid bleed. Do not believe symptoms are consistent with central venous thrombus either. Discussed with Pt concerning signs and symptoms to watch out for. Pt was instructed to follow up with their PCP and discussed with the patient their option to return to the ED at anytime for persistent or worsening symptoms. The appropriate anticipatory guidance and out-patient management, including indications for return to the emergency department, were explained at length to the patient and understood. Medication Reconcilliation Current Medication List: was personally reviewed by me Blood Pressure Screening Patient's blood pressure: Normal blood pressure Impression Primary Impression: Cephalalgia Scribe Attestation The scribe's documentation has been prepared under my direction and personally reviewed by me in its entirety. I confirm that the note above accurately reflects all work, treatment, procedures, and medical decision making performed by me. Departure Information Dispostion Home / Self-Care Prescriptions Amoxicillin (AMOXIL) 500 Mg Cap 500 MG PO TID, #30 CAP Prov: Nahun Kraus, DO 10/24/17 Referrals No Doctor, Assigned (PCP) Forms HOME CARE DOCUMENTATION FORM, IMPORTANT VISIT INFORMATION Patient Instructions ED Otitis Externa, Headache Pain, My [facility] Additional Instructions Please follow up with your primary care doctor with in the next 24 hours. Any worsening of your symptoms, please return to the ED immediately. This includes any fevers greater than 100.4, worsening pain, chest pain, weakness or numbness in arms or legs, shortness breath, persistent nausea, vomiting, unable to eat or drink, or any other concerning signs or symptoms from your standpoint. Please take ofloxacin drops 2 times a day the next 7 days. Please follow up with Ears nose and throat. Problem Qualifiers Primary Impression: Cephalalgia Headache type: unspecified Headache chronicity pattern: unspecified pattern Intractability: not intractable Qualified Codes: R51 - Headache
[2017-10-24] MEDS ORDERED: OFLOXACIN 0.3% OP SOLN 5 ML BTL OP SCH (21:00)
== END 2017-10-24 15:53 | disposition home or self-care (01) ==
LOC: C.EDB 12:21
DX: O26.92 Pregnancy related conditions, unspecified, second trimester (principal); Z3A.11 11 weeks gestation of pregnancy; R51 Headache; D72.829 Elevated white blood cell count, unspecified; I10 Essential (primary) hypertension; F41.9 Anxiety disorder, unspecified; E55.9 Vitamin D deficiency, unspecified; F17.200 Nicotine dependence, unspecified, uncomplicated; Z87.81 Personal history of (healed) traumatic fracture; Z79.899 Other long term (current) drug therapy; Z88.8 Allergy status to other drugs, medicaments and biological substances; Z88.3 Allergy status to other anti-infective agents; Z83.79 Family history of other diseases of the digestive system; Z82.49 Family history of ischemic heart disease and other diseases of the circulatory system

== ENCOUNTER 2018-02-01 19:28 | Emergency (ER) | payer BC, OTHER ==
[~2018-02-01] VITALS: Ht 157.5 cm; Wt 79.0 kg
[~2018-02-01 19:28] MED LIST changes: -ONDA4TAB10 SL
[2018-02-01 19:33] VITALS: TEMP 37; Ht 157.5 cm; Wt 79.0 kg
[2018-02-01] MEDS ORDERED: CALC500C3 PO (20:21)
[2018-02-01] MEDS ORDERED: PRENTAB26 PO (20:21)
[2018-02-01] MEDS ORDERED: SODIUM CHLORIDE 0.9% 1000ML 1,000 ML IV STA (20:55)
[2018-02-01 21:22] LABS: ALBUMIN 2.8 gm/dl (3.4-5.0); ALT/SGPT 18 U/L (12-78); BLOOD UREA NITROGEN 5 mg/dl (7-18); CALCIUM 8.8 mg/dl (8.5-10.1); CARBON DIOXIDE 24 mmol/L (21-32); CREATININE 0.44 mg/dl (0.60-1.20); GLUCOSE 79 mg/dl (70-99); POTASSIUM 3.3 mmol/L (3.5-5.1); SODIUM 137 mmol/L (136-145)
[2018-02-01 21:28] LABS: HEMATOCRIT 33.9 % (37-47); HEMOGLOBIN 11.7 g/dL (12.0-16.0); MEAN CELL VOLUME 91.1 fL (80-100); MEAN CORPUSCULAR HEMOGLOBIN 31.5 pg (25-34); MEAN CORPUSCULAR HGB CONC 34.5 g/dl (32-36); RED CELL DISTRIBUTION WIDTH CV 13.7 % (11.5-14.5); RED CELL DISTRIBUTION WIDTH SD 45.5 fL (36.4-46.3); WHITE BLOOD COUNT 18.43 K/uL (4.8-10.8)
[2018-02-01 21:33] LABS: ALKALINE PHOSPHATASE 105 U/L (45-117); AST/SGOT 13 U/L (15-37); CKMB 0.6 ng/ml (0.5-3.6); TOTAL PROTEIN 6.8 gm/dl (6.4-8.2)
[2018-02-01 22:06] LABS: BASO % 0.2 %; BASO ABS # 0.04 K/uL (0-0.2); EOS % 0.7 %; EOS ABS # 0.12 K/uL (0-0.5); IG# 0.18 K/uL (0.00-0.02); LYMPH % 18.3 %; LYMPH ABS # 3.38 K/uL (1.2-3.4); MONO ABS # 1.29 K/uL (0.11-0.59); NEUT % 72.8 %; NEUT ABS # 13.42 K/uL (1.4-6.5); PLATELET COUNT 284 K/uL (130-400)
--- NOTE | 2018-02-01 23:28 | EMERGENCY ROOM VISIT NOTE ---
History Report prepared by Jase: Cecilia Cuevas Under the Supervision of: Dr. Jonah Oviedo D.O. First contact with patient: 20:51 Chief Complaint: DIZZY Stated Complaint: 6 MONTHS PREG, DIZZY Nursing Triage Summary: C/o dizziness since this morning. Dizzy while sitting and moving. Reports cold sweats and numbness in hands and feet. History of Present Illness The patient is a 27 year old female who presents to the Emergency Room with complaints of dizziness beginning this morning. The patient also complains of a headache, nausea, and numbness in her arms and legs, but denies having urinary symptoms and vaginal discharge. She states that she has a history of migraines but states that this pain is different and it feels more like she is going to pass out. She states that she did not take medications for her symptoms. The patient reports that she is 6 months . Source of History: patient Onset: this morning Position: other (global) Quality: other (dizziness) Associated Symptoms: + headache, + nausea, + numbness (in arms and legs), No urinary symptoms Note: also denies: vaginal discharge Review of Systems See HPI for pertinent positives & negatives. A total of 10 systems reviewed and were otherwise negative. Past Medical & Surgical Medical Problems: (1) Anxiety (2) HTN (hypertension) (3) Hypokalemia (4) left foot surgery (5) Tibial plateau fracture, left (6) Vitamin D deficiency Family History Diabetes mellitus Gallbladder disease Hypertension Social History Smoking Status: Current Every Day Smoker Alcohol Use: occasionally Drug Use: none Marital Status: single Housing Status: other Occupation Status: employed Current/Historical Medications Scheduled Atenolol (Atenolol), 25 MG PO QAM Calcium Carbonate (Tums), 500 MG PO PRN Multivit/Min/Iron/Fol Ac/Pren ( Vitamin), 1 TAB PO DAILY Allergies Coded Allergies: Tramadol (Verified Adverse Reaction, Intermediate, N/V, 10/24/17) Physical Exam Vital Signs Date Time Temp Pulse Resp B/P (MAP) Pulse Ox O2 Delivery O2 Flow Rate FiO2 02/01/18 21:55 72 16 123/76 99 Room Air 02/01/18 19:33 37.0 99 20 122/82 95 Room Air Physical Exam CONSTITUTIONAL/VITAL SIGNS: Reviewed / noted above. GENERAL: Non-toxic in appearance. INTEGUMENTARY: Warm, dry, and [place]. HEAD: Normocephalic. EYES: without scleral icterus or trauma. ENT/OROPHARYNX: clear and moist. LYMPHADENOPATHY/NECK: Is supple without lymphadenopathy or meningismus. RESPIRATORY: Lungs clear and equal. CARDIOVASCULAR: Regular rate and rhythm. GI/ABDOMEN: Soft and nontender. No organomegaly or pulsatile mass. No rebound or guarding. Normal bowel sounds. EXTREMITIES: Warm and well perfused. BACK: No CVA tenderness. NEUROLOGICAL: Intact without focal deficits. PSYCHIATRIC: normal affect. MUSCULOSKELETAL: Normally developed with good muscle tone. Medical Decision & Procedures Laboratory Results 02/01/18 20:30 Red Blood Count 3.72, Mean Corpuscular Volume 91.1, Mean Corpuscular Hemoglobin 31.5, Mean Corpuscular Hemoglobin Concent 34.5, Mean Platelet Volume 10.0, Neutrophils (%) (Auto) 72.8, Lymphocytes (%) (Auto) 18.3, Monocytes (%) (Auto) 7.0, Eosinophils (%) (Auto) 0.7, Basophils (%) (Auto) 0.2, Neutrophils # (Auto) 13.42, Lymphocytes # (Auto) 3.38, Monocytes # (Auto) 1.29, Eosinophils # (Auto) 0.12, Basophils # (Auto) 0.04 02/01/18 20:30 Test 02/01/18 20:25 02/01/18 20:30 Urine Color YELLOW Urine Appearance CLEAR (CLEAR) Urine pH 7.0 (4.5-7.5) Urine Specific [place] 1.006 (1.000-1.030) Urine Protein NEG (NEG) Urine Glucose (UA) NEG (NEG) Urine Ketones NEG (NEG) Urine Occult Blood TRACE (NEG) Urine Nitrite NEG (NEG) Urine Bilirubin NEG (NEG) Urine Urobilinogen NEG (NEG) Urine Leukocyte Esterase NEG (NEG) Urine WBC (Auto) 1-5 /hpf (0-5) Urine RBC (Auto) 0-4 /hpf (0-4) Urine Hyaline Casts (Auto) 1-5 /lpf (0-5) Urine Epithelial Cells (Auto) >30 /lpf (0-5) Urine Bacteria (Auto) 1+ (NEG) White Blood Count 18.43 K/uL (4.8-10.8) Red Blood Count 3.72 M/uL (4.2-5.4) Hemoglobin 11.7 g/dL (12.0-16.0) Hematocrit 33.9 % (37-47) Mean Corpuscular Volume 91.1 fL (80-100) Mean Corpuscular Hemoglobin 31.5 pg (25-34) Mean Corpuscular Hemoglobin Concent 34.5 g/dl (32-36) Platelet Count 284 K/uL (130-400) Mean Platelet Volume 10.0 fL (7.4-10.4) Neutrophils (%) (Auto) 72.8 % Lymphocytes (%) (Auto) 18.3 % Monocytes (%) (Auto) 7.0 % Eosinophils (%) (Auto) 0.7 % Basophils (%) (Auto) 0.2 % Neutrophils # (Auto) 13.42 K/uL (1.4-6.5) Lymphocytes # (Auto) 3.38 K/uL (1.2-3.4) Monocytes # (Auto) 1.29 K/uL (0.11-0.59) Eosinophils # (Auto) 0.12 K/uL (0-0.5) Basophils # (Auto) 0.04 K/uL (0-0.2) RDW Standard Deviation 45.5 fL (36.4-46.3) RDW Coefficient of Variation 13.7 % (11.5-14.5) Immature Granulocyte % (Auto) 1.0 % Immature Granulocyte # (Auto) 0.18 K/uL (0.00-0.02) Platelet Estimate NORMAL Anion Gap 8.0 mmol/L (3-11) Est Creatinine Clear Calc Drug Dose 187.0 ml/min Estimated GFR () > 150.0 Estimated GFR (Non- 138.3 BUN/Creatinine Ratio 10.8 (10-20) Calcium Level 8.8 mg/dl (8.5-10.1) Magnesium Level 2.0 mg/dl (1.8-2.4) Total Bilirubin 0.2 mg/dl (0.2-1) Direct Bilirubin < 0.1 mg/dl (0-0.2) Aspartate Amino Transf (AST/SGOT) 13 U/L (15-37) Alanine Aminotransferase (ALT/SGPT) 18 U/L (12-78) Alkaline Phosphatase 105 U/L (45-117) Total Creatine Kinase 55 U/L (26-192) Creatine Kinase MB 0.6 ng/ml (0.5-3.6) Creatine Kinase MB Ratio 1.1 (0-3.0) Total Protein 6.8 gm/dl (6.4-8.2) Albumin 2.8 gm/dl (3.4-5.0) Thyroid Stimulating Hormone (TSH) 2.380 uIu/ml (0.300-4.500) Laboratory results as stated above per my review. Medications Administered Medications (Trade) Dose Ordered Sig/Deedee Route Start Time Stop Time Status Last Admin Dose Admin Sodium Chloride 1,000 ml @ 999 mls/hr Q1H1M STAT IV 02/01/18 20:55 02/01/18 21:55 DC 02/01/18 21:03 999 MLS/HR ED Course 2052: Previous medical records were reviewed. The patient was evaluated in room C11B. A complete history and physical examination was performed. 2054: Ordered Sodium Chloride 1,000 ml @ 999 mls/hr IV. 2329: On reevaluation, the patient is feeling better. I discussed the results and findings with the patient. She verbalized agreement of the treatment plan. She was discharged home. Medical Decision Differential includes acute coronary syndrome, myocardial infarction, CVA, TIA, anemia, infection, pneumonia, UTI, pyelonephritis, poor nutrition, dehydration, electrolyte disturbance,hypoglycemia. This is a 27-year-old female who presents to the ED with a chief complaint of some lightheadedness. She also developed a left-sided migraine, some mild blurring of her vision and some twitching in her left eye this evening. The patient feels that she might be dehydrated. She is 6 months . Her vital signs are normal. Her physical exam was unremarkable. The patient's abdomen is gravid. CBC reveals a white count of 18,000. This is likely related to . Complete metabolic panel was unremarkable and a urine did not show obvious infection. The patient was hydrated with a liter of normal saline IV. She is felt to be stable for discharge. She was feeling better. Medication Reconcilliation Current Medication List: was personally reviewed by me Blood Pressure Screening Patient's blood pressure: Normal blood pressure Impression Primary Impression: Dizziness Scribe Attestation The scribe's documentation has been prepared under my direction and personally reviewed by me in its entirety. I confirm that the note above accurately reflects all work, treatment, procedures, and medical decision making performed by me. Departure Information Dispostion Home / Self-Care Referrals No Doctor, Assigned (PCP) Forms HOME CARE DOCUMENTATION FORM, IMPORTANT VISIT INFORMATION Patient Instructions [facility] Additional Instructions Follow-up with your doctor for further care and evaluation in 1-2 days. Return to the emergency department for worsening or new symptoms or any concerns. You have been examined and treated today on an emergency basis only. This is not a substitute for, or an effort to provide, complete comprehensive medical care. It is impossible to recognize and treat all injuries or illnesses in a single emergency department visit. It is therefore important that you follow up closely with your doctor. Call as soon as possible for an appointment.
[2018-02-01 23:35] VITALS: BP 106/70; PULSE 79; O2SAT 99
== END 2018-02-01 23:36 | disposition home or self-care (01) ==
LOC: C.EDB 19:29 → C.EDC 23:36
DX: O99.89 Other specified diseases and conditions complicating pregnancy, childbirth and the puerperium (principal); R42 Dizziness and giddiness; D72.829 Elevated white blood cell count, unspecified; R20.0 Anesthesia of skin; R51 Headache; R11.0 Nausea; I10 Essential (primary) hypertension; F17.200 Nicotine dependence, unspecified, uncomplicated; Z3A.00 Weeks of gestation of pregnancy not specified; Z88.6 Allergy status to analgesic agent; Z83.3 Family history of diabetes mellitus; Z83.79 Family history of other diseases of the digestive system; Z82.49 Family history of ischemic heart disease and other diseases of the circulatory system

== ENCOUNTER 2018-02-14 17:09 | Emergency (ER) | payer BC, OTHER ==
[~2018-02-14] VITALS: Ht 157.5 cm; Wt 79.3 kg
[~2018-02-14 17:09] MED LIST changes: +CALC500C3 PO; +PRENTAB26 PO
[2018-02-14 17:11] VITALS: TEMP 37.3; Ht 157.5 cm; Wt 79.3 kg
[2018-02-14] MEDS ORDERED: METOCLOPRAMIDE HCL INJ 5 MG/ML 2 ML VIAL IV. STA (17:20)
[2018-02-14] MEDS ORDERED: ACETAMINOPHEN 325 MG TAB PO STA (17:20)
[2018-02-14] MEDS ORDERED: OSELTAMIVIR PHOSPHATE 75 MG CAP PO STA (17:20)
[2018-02-14] MEDS ORDERED: DiphenhydrAMINE HCL 50 MG/ML VIAL IV STA (17:20)
[2018-02-14] MEDS ORDERED: SODIUM CHLORIDE 0.9% 1000ML 1,000 ML IV STA (17:20)
--- NOTE | 2018-02-14 17:24 | EMERGENCY ROOM VISIT NOTE ---
History Report prepared by Jase: Garland López Under the Supervision of: Dr. German King M.D. First contact with patient: 17:12 Chief Complaint: FLU LIKE SX Stated Complaint: BODY ACHES, ABDOMINAL PAIN, 27 WKS PREG History of Present Illness The patient is a 27 year old female with a past medical history of ear infections, tachycardia, and palpitations who is currently and presents to the ED with a cc of constant flu-like symptoms beginning two days ago. Positive for chest pain, back pain, headache, ear pain, nausea, and vomiting. Negative for vaginal bleeding/discharge, urinary symptoms, and changes to her bowel movements. The patient states that she has had flu like symptoms for the last two days and that her head hurts the most. She notes that she is currently 27 weeks and that this is her first . She reports that she takes atenolol for her heart rate and palpitations. The patient states that she smokes cigarettes. Source of History: patient Onset: two days ago Position: head Timing: constant Associated Symptoms: + headache, + chest pain, + nausea, + vomiting, + back pain, No urinary symptoms Note: The patient also complains of ear pain. She denies any vaginal bleeding/ discharge and changes to her bowel movements. Review of Systems See HPI for pertinent positives and negatives. A total of ten systems were reviewed and were otherwise negative. Past Medical & Surgical Medical Problems: (1) Anxiety (2) Ear infection (3) HTN (hypertension) (4) Hypokalemia (5) left foot surgery (6) (7) Tibial plateau fracture, left (8) Vitamin D deficiency Surgical Problems: (1) H/O foot surgery (2) H/O knee surgery Family History Diabetes mellitus Gallbladder disease Hypertension Social History Smoking Status: Current Every Day Smoker Alcohol Use: occasionally Drug Use: none Marital Status: single Occupation Status: unemployed Current/Historical Medications Scheduled Amoxicillin & Pot Clavulanate (Augmentin 875-125 mg), 875 MG PO BID Atenolol (Atenolol), 25 MG PO QAM Calcium Carbonate (Tums), 500 MG PO PRN Multivit/Min/Iron/Fol Ac/Pren ( Vitamin), 1 TAB PO DAILY Ofloxacin (Otic) (Floxin Otic), 10 DROPS OT BID Oseltamivir (Tamiflu), 75 MG PO BID Scheduled PRN Ondansetron Hcl (Zofran), 4 MG PO UD PRN for Nausea Allergies Coded Allergies: Tramadol (Verified Adverse Reaction, Intermediate, N/V, 02/14/18) Physical Exam Vital Signs Date Time Temp Pulse Resp B/P (MAP) Pulse Ox O2 Delivery O2 Flow Rate FiO2 02/14/18 19:28 101 20 103/78 96 Room Air 02/14/18 17:11 37.3 118 17 118/75 98 Room Air Physical Exam GENERAL: Awake, alert, mildly ill appearing, NAD, wearing glasses. HENT: Normocephalic, atraumatic, perforated left TM with a purulent effusion, no signs of otitis externa. EYES: Normal conjunctiva. Sclera non-icteric. NECK: Supple. No nuchal rigidity. FROM. RESPIRATORY: CTAB, no rhonchi, wheezing, crackles CARDIAC: RRR, no MRG ABDOMEN: Soft, NTND, BS+, fundal height 5-8cm above umbilicus. MSK: No chest wall TTP, no LE edema NEURO: GCS 15, CN 2-12 intact, moves all 4s on command SKIN: No rash or jaundice noted. Medical Decision & Procedures Laboratory Results Test 02/14/18 17:45 02/14/18 18:00 Urine Color YELLOW Urine Appearance CLEAR (CLEAR) Urine pH 6.5 (4.5-7.5) Urine Specific [place] 1.011 (1.000-1.030) Urine Protein NEG (NEG) Urine Glucose (UA) NEG (NEG) Urine Ketones 2+ (NEG) Urine Occult Blood 1+ (NEG) Urine Nitrite NEG (NEG) Urine Bilirubin NEG (NEG) Urine Urobilinogen NEG (NEG) Urine Leukocyte Esterase NEG (NEG) Urine WBC (Auto) 1-5 /hpf (0-5) Urine RBC (Auto) 0-4 /hpf (0-4) Urine Hyaline Casts (Auto) 1-5 /lpf (0-5) Urine Epithelial Cells (Auto) >30 /lpf (0-5) Urine Bacteria (Auto) NEG (NEG) Influenza Type A Antigen Neg for Influ A (NEG) Influenza Type B Antigen Neg for Influ B (NEG) Laboratory results reviewed by me Medications Administered Medications (Trade) Dose Ordered Sig/Deedee Route Start Time Stop Time Status Last Admin Dose Admin Amoxicillin/ Clavulanate Potassium (Augmentin Tab) 875 mg NOW ONCE PO 02/14/18 17:30 02/14/18 17:31 DC 02/14/18 17:56 875 MG Acetaminophen (Tylenol Tab) 650 mg NOW STAT PO 02/14/18 17:20 02/14/18 17:28 DC 02/14/18 17:56 650 MG Diphenhydramine HCl (Benadryl Inj) 50 mg NOW STAT IV 02/14/18 17:20 02/14/18 17:28 DC 02/14/18 17:57 50 MG Sodium Chloride 1,000 ml @ 999 mls/hr Q1H1M STAT IV 02/14/18 17:20 02/14/18 18:20 DC 02/14/18 17:57 999 MLS/HR Metoclopramide HCl (Reglan Inj) 10 mg NOW STAT IV. 02/14/18 17:20 02/14/18 17:28 DC 02/14/18 17:57 10 MG Oseltamivir Phosphate (Tamiflu Cap) 75 mg NOW STAT PO 02/14/18 17:20 02/14/18 17:28 DC 02/14/18 17:57 75 MG Ondansetron HCl (Zofran Inj) 4 mg STK-MED ONCE .ROUTE 02/14/18 19:23 02/14/18 19:24 DC 02/14/18 19:25 4 MG ED Course 1713: The patient was evaluated in room C2. A complete history and physical exam was performed. 2102: I reevaluated and updated the patient. 2146: I reevaluated the patient. Discussed results and discharge instructions: She verbalized understanding and agreement. The patient is ready for discharge. Medical Decision Nursing notes reviewed. Ancillary studies and prior records reviewed. The patient is a 27 year old female with a past medical history of ear infections, tachycardia, and palpitations who is currently and presents to the ED with a cc of constant flu-like symptoms beginning two days ago. Positive for chest pain, back pain, headache, ear pain, nausea, and vomiting. Negative for vaginal bleeding/discharge, urinary symptoms, and changes to her bowel movements. Differential diagnosis: Etiologies such as viral syndrome, otitis, pharyngitis, pneumonia, influenza, meningitis, urinary tract infection, sepsis, bacteremia, as well as others were entertained. Patient was seen and evaluated the bedside. Patient is a approximately 27 weeks who presents with chief complaint of some headache and flulike symptoms. Patient has been taking Tylenol but without much effect. Patient has complained of nausea and dry heaving but without vomiting. Patient denies any antibiotic use, vaginal bleeding, vaginal discharge, or abdominal pain. Patient has a fairly benign exam with the exception of a purulent effusion of the left TM with perforation. Patient did have a urinalysis completed and a flu swab tested. Patient was given Tamiflu empirically given her status high risk nature of fluid . Patient was also given Augmentin. Patient also received medications and fluids for her headache. Upon reassessment the patient was sleeping comfortably. Patient was feeling improved. Patient's urinalysis was negative. Patient had a negative flu swab. Given the patient's a dramatic improvement patient was deemed suitable for outpatient follow-up treatment at this time. Patient did have a first dose of her antibiotic. Patient was given prescriptions for her antibiotic, Tamiflu, and ofloxacin drops. Patient did have an episode of nausea with vomiting prior to discharge. Patient was given an additional 4 mg IV Zofran and the patient was able to tolerate p.o. Patient was given strict follow-up, discharge, and return precautions. All questions were answered. Patient was deemed suitable for outpatient follow-up at this time. Patient agreed with the plan of care and was safely discharged home. Medication Reconcilliation Current Medication List: was personally reviewed by me Blood Pressure Screening Patient's blood pressure: Normal blood pressure Blood pressure disposition: Did not require urgent referral Impression Primary Impression: Influenza-like symptoms Additional Impressions: Headache Otitis media Perforated tympanic membrane Encounter for smoking cessation counseling Scribe Attestation The scribe's documentation has been prepared under my direction and personally reviewed by me in its entirety. I confirm that the note above accurately reflects all work, treatment, procedures, and medical decision making performed by me. Departure Information Dispostion Home / Self-Care Prescriptions Oseltamivir (Tamiflu) 75 Mg Cap 75 MG PO BID for 5 Days, #9 CAP Prov: German King M.D. 02/14/18 Ofloxacin (Otic) (FLOXIN OTIC) 0.3 % Sang 10 DROPS OT BID for 14 Days, #1 BTL Prov: German King M.D. 02/14/18 Amoxicillin & Pot Clavulanate (Augmentin 875-125 mg) 1 Tab Tab 875 MG PO BID for 10 Days, #20 TAB Prov: German King M.D. 02/14/18 Referrals No Doctor, Assigned (PCP) Forms HOME CARE DOCUMENTATION FORM, IMPORTANT VISIT INFORMATION Patient Instructions ED Otitis Media Acute Adult, Headache Pain, My [facility] Additional Instructions Please return to the emergency department if you have worsening or recurrent symptoms not amenable to at-home treatment. Please call for a follow-up appointment with her primary care physician. Please take your medications as prescribed. If you have other concerns and/or complaints please feel free to also call your primary care physician's office or return the ED for further evaluation, management, and treatment. Please follow-up with your [employer]. You may take tylenol 1000 mg every 6 hours as needed for pain. You may take Benadryl for nausea. Slowly advance her diet as tolerated. Take your medications as prescribed. If taking an antibiotic consider taking a probiotic and/or eating yogurt, but at the least, please take with food as it can cause upset stomach. If you do have persistent ear problems please follow-up with your PCP and discuss the need for a possible ear nose and throat referral. You have been examined and treated today on an emergency basis only. This is not a substitute for, or an effort to provide, complete comprehensive medical care. It is impossible to recognize and treat all injuries or illnesses in a single emergency department visit. It is therefore important that you follow up closely with [facility], your PCP, and/or your specialist(s). Call as soon as possible for an appointment. Thank you for your time and consideration. I look forward to speaking with you again soon. Please don't hesitate to call us if you have any questions. Problem Qualifiers Additional Impressions: Headache Headache type: unspecified Headache chronicity pattern: acute headache Intractability: not intractable Qualified Codes: R51 - Headache Otitis media Otitis media type: suppurative Chronicity: chronic Laterality: left Suppurative otitis media location: unspecified location Qualified Codes: H66.3X2 - Other chronic suppurative otitis media, left ear Perforated tympanic membrane Laterality: left Qualified Codes: H72.92 - Unspecified perforation of tympanic membrane, left ear
[2018-02-14] MEDS ORDERED: AMOXICILLIN/CLAVULANATE TAB 875 MG TAB PO ONE (17:30)
[2018-02-14] MEDS ORDERED: ONDA4TAB46 PO (18:18)
[2018-02-14 18:43] LABS: INFLUENZA B ANTIGEN Neg for Influ B (NEG)
[2018-02-14] MEDS ORDERED: OFLO0.3D4 OT (19:14)
[2018-02-14] MEDS ORDERED: OSEL75CA12 PO (19:14)
[2018-02-14] MEDS ORDERED: AMOX875T PO (19:14)
[2018-02-14] MEDS ORDERED: ONDANSETRON INJ 2 MG/ML 2 ML VIAL ONE (19:23)
[2018-02-14] MEDS ORDERED: ONDANSETRON INJ 2 MG/ML 2 ML VIAL IV STA (19:24)
[2018-02-14 19:56] VITALS: BP 116/77; PULSE 99; O2SAT 97
== END 2018-02-14 19:57 | disposition home or self-care (01) ==
LOC: C.EDB 17:11 → C.EDC 19:57
DX: O26.892 Other specified pregnancy related conditions, second trimester (principal); O99.89 Other specified diseases and conditions complicating pregnancy, childbirth and the puerperium; R51 Headache; O21.9 Vomiting of pregnancy, unspecified; H66.3X2 Other chronic suppurative otitis media, left ear; H72.92 Unspecified perforation of tympanic membrane, left ear; Z71.6 Tobacco abuse counseling; M54.9 Dorsalgia, unspecified; O10.013 Pre-existing essential hypertension complicating pregnancy, third trimester; O99.332 Smoking (tobacco) complicating pregnancy, second trimester; F17.210 Nicotine dependence, cigarettes, uncomplicated; Z3A.27 27 weeks gestation of pregnancy; Z88.6 Allergy status to analgesic agent; Z98.890 Other specified postprocedural states; Z83.3 Family history of diabetes mellitus; Z82.49 Family history of ischemic heart disease and other diseases of the circulatory system; Z79.899 Other long term (current) drug therapy